=== PATIENT | female | born 1965 | race Caucasian/White ===

== ENCOUNTER 2018-06-17 22:30 | Emergency (ER) | payer SELFPAY ==
[2018-06-17] MEDS ORDERED: Sodium Chloride 0.9% 1000 ML 1,000 ML IV STA (22:59)
[2018-06-17] MEDS ORDERED: TORAdol 30 mg Injection IV ONE (23:02)
[2018-06-17] MEDS ORDERED: Sodium Chloride 0.9% 1000 ML 1,000 ML ONE (23:04)
[2018-06-17] MEDS ORDERED: TORAdol 30 mg Injection ONE (23:04)
--- NOTE | 2018-06-17 23:08 | ERPHSYRPT ---
- History of Present Illness Time Seen by Provider: 06/17/18 23:02 Historian: patient Exam Limitations: no limitations Patient Subjective Stated Complaint: pt states while sitting on the couch approx 1 hour ago, she began having midsternal chest pain radaiting across chest and to back. rates at 7/10 and describes as tightness Triage Nursing Assessment: pt alert and oriented. answers questions approp. pt ambulatory with slow gait ntoed, respirations nonlabored with lungs cta. heart rate 68 sinus rhythm Physician History: patient with history of mitral valve regurg presents with chest pain that occurred 2 hours prior to arrival. Patient was sitting when she developed substernal chest pain described as pressure and radiating to back. Pain was noted to be constant and was 7/10 at maximum and currently 3/10. Patient did have palpitations, tingling around mouth/fingers and some dizziness, but no shortness of breath, diaphoresis, nausea, vomiting or dizziness. patient was doing well prior to symptoms without any recent fever, chills, shortness of breath, abdominal/back pain or urinary symptoms Timing/Duration: today, hour(s) (2 hours prior to arrival), constant Activities at Onset: rest Quality: pressure Location: substernal Chest Pain Radiation: back Severity of Pain-Max: moderate Severity of Pain-Current: moderate Modifying Factors: Improves With: breathing (worse ), movement (worsen) Associated Symptoms: palpitations, hurts to breathe, No nausea, No vomiting, No shortness of breath, No cough, No diaphoresis, No chills Prior Chest Pain/Cardiac Workup: no prior chest pain Nitro Today/Relief: no nitro taken today Aspirin Treatment Today: no aspirin today Hx Tetanus, Diphtheria Vaccination/Date Given: Yes Hx Influenza Vaccination/Date Given: No Hx Pneumococcal Vaccination/Date Given: No Immunizations Up to Date: Yes - Review of Systems Constitutional: Weakness, No Fever, No Chills Eyes: No Symptoms Ears, Nose, & Throat: No Symptoms Respiratory: No Symptoms, No Cough, No Dyspnea, No Dyspnea on Exertion ([facility]) Cardiac: Chest Pain, No Edema, No Syncope Abdominal/Gastrointestinal: No Symptoms, No Abdominal Pain, No Nausea, No Vomiting, No Diarrhea Genitourinary Symptoms: No Symptoms, No Dysuria Musculoskeletal: No Symptoms, No Back Pain, No Neck Pain Skin: No Symptoms, No Rash Neurological: No Symptoms, No Dizziness, No Focal Weakness, No Sensory Changes Psychological: No Symptoms Endocrine: No Symptoms Hematologic/Lymphatic: No Symptoms Immunological/Allergic: No Symptoms All Other Systems: Reviewed and Negative - Past Medical History Pertinent Past Medical History: No - Past Surgical History Past Surgical History: Yes Gastrointestinal: Appendectomy Musculoskeletal: Orthopedic Surgery Female Surgical History: Hysterectomy - Social History Smoking Status: Never smoker Drug Use: none Patient Lives Alone: No - Female History Hx Last Menstrual Period: hyster - Nursing Vital Signs Nursing Vital Signs: Initial Vital Signs Pulse Rate 66 06/17/18 22:34 Respiratory Rate 18 06/17/18 22:34 Blood Pressure 106/67 06/17/18 22:34 O2 Sat by Pulse Oximetry 97 06/17/18 22:34 Pain Scale Pain Intensity 4 - Physical Exam General Appearance: no apparent distress, alert, anxiety (mildly anxious) Eye Exam: PERRL/EOMI, eyes nml inspection Ears, Nose, Throat Exam: normal ENT inspection, moist mucous membranes Neck Exam: normal inspection, non-tender, supple, full range of motion Respiratory Exam: normal breath sounds, chest tenderness (palpable tenderness to mid sternum), lungs clear, No respiratory distress Cardiovascular Exam: regular rate/rhythm, normal heart sounds Gastrointestinal/Abdomen Exam: soft, No tenderness, No mass Back Exam: normal inspection, No CVA tenderness, No vertebral tenderness Extremity Exam: normal inspection, normal range of motion Neurologic Exam: alert, oriented x 3, cooperative, normal mood/affect, sensation nml, No motor deficits Skin Exam: normal color, warm, dry SpO2 Interpretation: normal SpO2: 97 Oxygen Delivery: Room Air - Course Nursing assessment & vital signs reviewed: Yes EKG Interpreted by Me: RATE (61), Sinus Rhythm, NORMAL AXIS, NORMAL INTERVALS, NORMAL QRS, NORMAL ST-T (she is a) - CT Exams Chest CT Interpretation: Negative, Tele-radiologist Report, No PE Ordered Tests: Active Orders 24 hr Category Date Time Status Agency Recruiter STAT Care 06/17/18 23:00 Active EKG-ER Only STAT Care 06/17/18 22:59 Active IV Insertion STAT Care 06/17/18 22:59 Active Pulse Oximetry (ED) STAT Care 06/17/18 22:59 Active CHEST 1 VIEW (PORTABLE) Stat Exams 06/17/18 23:00 Taken CHEST WITH CONTRAST [CT] Stat Exams 06/17/18 23:54 Taken BMP Stat Lab 06/17/18 22:59 Completed CBC W DIFF Stat Lab 06/17/18 22:59 Completed CK-Creatinine Phosphokinase Stat Lab 06/17/18 22:59 Completed D-DIMER QUANTITATION Stat Lab 06/17/18 22:59 Completed NT PRO BNP Stat Lab 06/17/18 22:59 Completed TROPONIN Q3H Lab 06/17/18 23:00 Completed TROPONIN Q3H Lab 06/18/18 02:00 Ordered Medication Summary Discontinued Medications Generic Name Dose Route Start Last Admin Trade Name Dannyq PRN Reason Stop Dose Admin Sodium Chloride 1,000 mls @ 999 mls/hr 06/17/18 22:59 06/17/18 23:07 Sodium Chloride 0.9% 1000 Ml IV 06/17/18 23:59 999 mls/hr .Q1H1M STA Administration Sodium Chloride Confirm 06/17/18 23:04 Sodium Chloride 0.9% 1000 Ml Administered 06/17/18 23:05 Dose 1,000 mls @ ud .ROUTE .STK-MED ONE Sodium Chloride Confirm 06/17/18 23:09 Sodium Chloride 0.9% 1000 Ml Administered 06/17/18 23:10 Dose 1,000 mls @ ud .ROUTE .STK-MED ONE Ketorolac Tromethamine 15 mg 06/17/18 23:02 06/17/18 23:06 Toradol 30 Mg Injection IV 06/17/18 23:03 15 mg STAT ONE Administration Ketorolac Tromethamine Confirm 06/17/18 23:04 Toradol 30 Mg Injection Administered 06/17/18 23:05 Dose 30 mg .ROUTE .STK-MED ONE Lab/Rad Data: Laboratory Result Diagrams 06/17/18 22:59 06/17/18 22:59 Laboratory Results 06/17/18 06/17/18 06/17/18 Range/Units 23:00 22:59 22:59 WBC (4.0-10.5) K/mm3 RBC (4.1-5.4) M/mm3 Hgb (12.0-16.0) gm/dl Hct (35-47) % MCV (78-100) fl MCH (26-32) pg MCHC (32-36) g/dl RDW (11.5-14.0) % Plt Count (150-450) K/mm3 MPV (6-9.5) fl Gran % (36.0-66.0) % Eos # (Auto) (0-0.5) Absolute Lymphs (auto) (1.0-4.6) Absolute Monos (auto) (0.0-1.3) Lymphocytes % (24.0-44.0) % Monocytes % (0.0-12.0) % Eosinophils % (0.00-5.0) % Basophils % (0.0-0.4) % Absolute Granulocytes (1.4-6.9) Basophils # (0-0.4) D-Dimer < 215 L (215-500) ng/mL Sodium 141 (137-145) mmol/L Potassium 4.0 (3.5-5.1) mmol/L Chloride 101 (98-107) mmol/L Carbon Dioxide 30 (22-30) mmol/L Anion Gap 13.9 (5-15) MEQ/L BUN 18 H (7-17) mg/dL Creatinine 0.65 (0.52-1.04) mg/dL Estimated GFR > 60.0 ML/MIN Glucose 93 (74-106) mg/dL Calcium 10.0 (8.4-10.2) mg/dL Creatine Kinase 54 (30-135) U/L Troponin I < 0.012 (0.000-0.034) ng/mL NT-Pro-B Natriuret Pep 40.0 (0-900) pg/mL 06/17/18 Range/Units 22:59 WBC 7.3 (4.0-10.5) K/mm3 RBC 4.06 L (4.1-5.4) M/mm3 Hgb 12.6 (12.0-16.0) gm/dl Hct 36.9 (35-47) % MCV 90.9 (78-100) fl MCH 31.0 (26-32) pg MCHC 34.1 (32-36) g/dl RDW 12.6 (11.5-14.0) % Plt Count 251 (150-450) K/mm3 MPV 10.3 H (6-9.5) fl Gran % 64.7 (36.0-66.0) % Eos # (Auto) 0.11 (0-0.5) Absolute Lymphs (auto) 1.87 (1.0-4.6) Absolute Monos (auto) 0.60 (0.0-1.3) Lymphocytes % 25.5 (24.0-44.0) % Monocytes % 8.2 (0.0-12.0) % Eosinophils % 1.5 (0.00-5.0) % Basophils % 0.1 (0.0-0.4) % Absolute Granulocytes 4.74 (1.4-6.9) Basophils # 0.01 (0-0.4) D-Dimer (215-500) ng/mL Sodium (137-145) mmol/L Potassium (3.5-5.1) mmol/L Chloride (98-107) mmol/L Carbon Dioxide (22-30) mmol/L Anion Gap (5-15) MEQ/L BUN (7-17) mg/dL Creatinine (0.52-1.04) mg/dL Estimated GFR ML/MIN Glucose (74-106) mg/dL Calcium (8.4-10.2) mg/dL Creatine Kinase (30-135) U/L Troponin I (0.000-0.034) ng/mL NT-Pro-B Natriuret Pep (0-900) pg/mL - Progress Air Movement: good Progress Note: 06/18/18 02:42 patient feels much improved with chest pain 1-2/10. O2 sats are greater 95%, repeat troponin negative and hemodynamically stable. Patient instructed to follow up with her doctor otherwise return for worse symptom Counseled pt/family regarding: lab results, diagnosis, rad results - Departure Time of Disposition: 02:48 Departure Disposition: Home Clinical Impression: Chest pain in adult Condition: Stable Critical Care Time: No Referrals: ZAIRA WAY [Primary Care Provider] - Instructions: Atypical Chest Pain Additional Instructions: May take Motrin 600 mg every 8 hours with food and/or Tylenol 1 g hours for pain /discomfort. Follow-up with your doctor in 2-3 days. Return for worse chest pain,, short of breath, cold sweat, palpitation, nausea, vomiting, dizziness, weakness or any problems
[2018-06-17] MEDS ORDERED: Sodium Chloride 0.9% 1000 ML 0 ML ONE (23:09)
[2018-06-17 23:30] LABS: BASOPHIL % 0.1 % (0.0-0.4); Basophil (Absolute #) 0.01 (0-0.4); Eosinophil % 1.5 % (0.00-5.0); Eosinophil (Absolute #) 0.11 (0-0.5); Granulocyte Absolute (ANC) 4.74 (1.4-6.9); Granulocytes % 64.7 % (36.0-66.0); Hematocrit 36.9 % (35-47); Hemoglobin 12.6 gm/dl (12.0-16.0); Lymphocyte (Absolute #) 1.87 (1.0-4.6); Lymphocytes % 25.5 % (24.0-44.0); Mean Cell Volume 90.9 fl (78-100); Mean Corpuscular Hgb Concent. 34.1 g/dl (32-36); Mean Platelet Volume 10.3 fl (6-9.5); Monocytes % 8.2 % (0.0-12.0); Platelet Count 251 K/mm3 (150-450); Red Blood Count 4.06 M/mm3 (4.1-5.4); Red Cell Distribution Width 12.6 % (11.5-14.0); White Blood Count 7.3 K/mm3 (4.0-10.5)
[2018-06-17 23:38] LABS: ANION GAP 13.9 MEQ/L (5-15); BLOOD UREA NITROGEN 18 mg/dL (7-17); CHLORIDE 101 mmol/L (98-107); CK-Creatinine Phosphokinase 54 U/L (30-135); Carbon Dioxide 30 mmol/L (22-30); Creatinine 1 0.65 mg/dL (0.52-1.04); Glucose 93 mg/dL (74-106); SODIUM 141 mmol/L (137-145)
[2018-06-18 02:52] VITALS: O2SAT 98
[2018-06-18 03:08] VITALS: BP 102/66; PULSE 64
--- NOTE | 2018-06-18 10:14 | XRAY ---
Indication: Chest pain. Comparison: None Portable chest demonstrates normal heart and lungs. Bony thorax intact with minimal degenerative changes.
--- NOTE | 2018-06-18 10:14 | XRAY ---
Indication: Chest pain. Multiple contiguous axial images obtained through the chest using 80 cc Isovue 370 contrast and PE protocol. Comparison: None. There is satisfactory opacification of the pulmonary arteries to include the lobar and segmental branches. No filling defect or pulmonary mass. Heart is not enlarged. Aorta is normal in course and caliber. A few tiny mediastinal and left hilar calcified nodes. No pathologic mediastinal/hilar lymphadenopathy. Examination of the lung parenchyma demonstrates 4 mm subpleural nodule in the left upper lobe, probably granulomatous. Minimal bibasilar dependent atelectasis. No suspicious pulmonary mass, infiltrate, or effusion. Bony thorax intact with minimal degenerative changes throughout the spine. Limited upper abdomen unremarkable.. Impression: 1. Negative pulmonary embolus. No acute cardiopulmonary abnormalities. 2. Evidence for old granulomatous disease including left upper lobe noncalcified micronodule. Comment: Preliminary interpretation was made by [facility]. No critical discrepancy. CTDI 10.00
== END 2018-06-18 03:08 | disposition home or self-care (01) ==
LOC: ED 22:30
DX: R07.9 Chest pain, unspecified (principal)
CPT/HCPCS: 36000; 36415; 71045; 71260; 80048; 82550; 83880; 84484; 85025; 85379; 93005; 93041; 96360; 96374; 99284; J1885